=== PATIENT | male | born 1975 | race Caucasian/White ===

== ENCOUNTER 2022-01-04 12:45 | Emergency (ER) | payer MEDICAID, SELFPAY ==
[2022-01-04 13:04] VITALS: BP 119/76; PULSE 72; RESP 18; TEMP 36.9; O2SAT 95; BMI 28.0
[2022-01-04 13:15] LABS: Apearance,Urine Clear (Clear); Color,Urine Yellow (Yellow)
[2022-01-04 13:16] LABS: Blood, Urine Negative (Negative); Glucose,Urine (UA) Negative (Negative); Ketones,Urine Negative (Negative); Protein,Urine Negative (Negative); Specific Gravity, Urine >= 1.030 (1.005-1.030)
[2022-01-04 13:17] LABS: Bilirubin,Urine Negative (Negative); UTC Leukocyte Esterase,Urine Negative (Negative); UTC Nitrate,Urine Negative (Negative); Urobilinogen,Urine 0.2 EU/dl (0.2)
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
[2022-01-04 14:23] VITALS: BP 119/76; PULSE 72; RESP 18; TEMP 36.9
== END 2022-01-04 14:24 | disposition home or self-care (01) ==
PROVIDERS: Emergency Provider Nurse Practitioner
DX: N30.00 Acute cystitis without hematuria (principal)
CPT/HCPCS: 81003; 87086; 99212; G0463

== ENCOUNTER 2022-11-26 17:39 | Emergency (ER) | payer MEDICAID, SELFPAY ==
[2022-11-26 17:40] VITALS: BP 151/91; PULSE 64; RESP 20; TEMP 37.1; O2SAT 99; BMI 27.3
--- NOTE | 2022-11-26 17:48 | CT_ITS ---
PROCEDURE INFORMATION: Exam: CT Abdomen And Pelvis Without Contrast Exam date and time: 11/26/2022 6:05 PM Age: 47 years old Clinical indication: Abdominal pain; Flank; Right; Additional info: Kidney stone TECHNIQUE: Imaging protocol: Computed tomography of the abdomen and pelvis without contrast. Radiation optimization: All CT scans at this facility use at least one of these dose optimization techniques: automated exposure control; mA and/or kV adjustment per patient size (includes targeted exams where dose is matched to clinical indication); or iterative reconstruction. REPORTING DATA: Count of CT and Cardiac NM exams in prior 12 months: This patient has received 0 known CTs and 0 known cardiac nuclear medicine studies in the 12 months prior to the current study. COMPARISON: No relevant prior studies available. FINDINGS: Liver: Unremarkable. Gallbladder and bile ducts: Gallbladder is not visualized. Pancreas: Unremarkable. Spleen: Unremarkable. Adrenal glands: Unremarkable. Kidneys and ureters: Three stones in the distal right ureter near the ureterovesical junction measuring 2-5 mm and associated with moderate right hydroureteronephrosis and renal edema. Few additional punctate (2-3 mm) non-obstructing stones in the bilateral kidneys. No left hydronephrosis. Stomach and bowel: Unremarkable. Appendix: No evidence of appendicitis. Intraperitoneal space: No free fluid. No pneumoperitoneum. Vasculature: Unremarkable. Lymph nodes: Unremarkable. Urinary bladder: Bladder is decompressed, limiting evaluation. Reproductive: Unremarkable. Bones/joints: No acute osseous abnormality. Soft tissues: Unremarkable. IMPRESSION: 1. Three stones in the distal right ureter near the ureterovesical junction measuring 2-5 mm and associated with moderate right hydroureteronephrosis and renal edema. 2. Few additional punctate (2-3 mm) non-obstructing stones in the bilateral kidneys.
[2022-11-26 17:57] LABS: Basophils # 0.1 K/mm3 (0-0.2); Basophils % 0.9 % (0.1-2.0); Eosinophils # 0.2 K/mm3 (0.0-0.4); Eosinophils % 1.5 % (0.1-12.0); Hematocrit 47.5 % (42.0-52.0); Hemoglobin 15.1 g/dL (14.1-18.0); Lymphocytes # 2.4 K/mm3 (0.7-4.5); Lymphocytes % 20.3 % (10-50); Mean Corpuscular HGB Conc 31.8 g/dL (31.8-35.4); Mean Corpuscular Hemoglobin 28.3 pg (27.0-31.2); Mean Corpuscular Volume 88.7 fl (80-94); Mean Platelet Volume 7.4 fl (7.4-10.4); Monocytes # 0.5 K/mm3 (0.1-1.0); Monocytes % 4.2 % (1.7-9.3); Neutrophils # 8.7 K/mm3 (1.8-7.8); Neutrophils % 73.2 % (37.0-80.0); Platelet Count 274 K/mm3 (142-424); Red Blood Count 5.35 M/mm3 (4.60-6.20); Red Cell Distribution Width 13.9 % (11.5-17.5); White Blood Count 11.9 K/mm3 (4.8-10.8)
[2022-11-26 18:18] LABS: Chloride 100 mmol/L (98-107); Potassium 4.3 mmoL/L (3.5-5.1); Sodium 138 mmol/L (136-145)
[2022-11-26 18:21] LABS: Alanine Aminotransferase 26 U/L (12-78); Albumin Level 4.7 g/dl (3.5-5.0); Albumin/Globulin Ratio 1.9 (1.1-1.8); Alkaline Phosphatase 70 U/L (38-126); Anion Gap 10.3 mEq/L (5-15); Aspartate Amino Transferase 53 U/L (17-59); Bilirubin,Total 0.7 mg/dl (0.2-1.3); Blood Urea Nitrogen 17 mg/dl (9-20); Carbon Dioxide 32 mmol/L (22.0-30.0); Creatinine Clearance Estimated 83 mL/min (50-200); Estimated Glomerular Filt Rate 59 ml/min (>60); GFR (African American) 72 ML/MIN (>60); Globulin 2.5 g/dL (1.3-3.2); Glucose 112 mg/dl (74-100); Total Protein,Serum 7.2 g/dl (6.3-8.2)
--- NOTE | 2022-11-26 19:08 | HMH.EDGENADL ---
Discharge Plan Disposition Patient Disposition: Home, Self-Care Condition: Fair Prescriptions Prescriptions: New oxycodone-acetaminophen [Percocet] 10-325 mg tablet 1 tab PO Q6H PRN (Reason: pain) Qty: 20 0RF ondansetron 4 mg tablet,disintegrating 4 mg PO Q8H PRN (Reason: nausea and vomiting) Qty: 10 0RF tamsulosin [Flomax] 0.4 mg capsule 0.4 mg PO HS Qty: 10 0RF ketorolac 10 mg tablet 10 mg PO Q6H PRN (Reason: pain) 3 Days Qty: 10 0RF No Action phenazopyridine 200 MG tablet 200 pow PO TID Qty: 6 0RF cefdinir 300 MG capsule 300 mg PO BID 7 Days Qty: 14 0RF Referrals Follow up/Referrals: Provider,Isha, [Primary Care Provider] - See instructions Mika Menendez MD [Referring] - See instructions Activity Restrictions/Add. Instructions Additional Instructions/Restrictions: Flomax as prescribed. Toradol and Percocet as needed for pain. Zofran as needed for nausea. Additional instructions for KIDNEY STONE (URETERAL CALCULUS): See urologist, Dr. Menendez, as soon as possible for further evaluation. Drink plenty of fluids. Strain your urine and save any stones you catch. Return immediately if you develop a fever or have uncontrollable vomiting or uncontrollable pain. Additional instructions for CONTROLLED SUBSTANCES: You have been prescribed a medication that is a controlled substance. Controlled substances include pain medications known as opiates and sedative nerve medications known as benzodiazepines. Tramadol, fioricet, and gabapentin are also controlled substances. Some common opiates include: Codeine (such as Tylenol #3) Hydrocodone (Vicodin, Lortab, Lorcet, [place]) Oxycodone (Percocet, Percodan, Oxycodone, Oxy IR) Some common benzodiazepines include: Diazepam (Valium) Lorazepam (Ativan) Alprazolam (Xanax) Clonazepam (Klonopin) Oxazepam (Serax) All of these controlled substances are highly addictive and frequently abused. Misuse can and frequently does lead to addiction as well as overdose and . Medication should be stored in a locked cabinet or other secure storage unit. Do not store the medication in a motor vehicle. Short term supplies, 3 days or less, are prescribed because of the highly addictive nature of the medication. Any of the controlled substance medication NOT taken should be disposed of properly and NOT SAVED. The recommended method of disposing of unused medications is: Place the medicines in a sealable plastic bag. If the medicine is a solid, crush it or add water to dissolve it. Add something undesirable (cat litter, coffee grounds, etc.) Dispose of sealed bag in household trash Do not flush or pour unused medicines down a sink or drain. Controlled substances should not be shared, given away or sold. Because of the addictive nature and frequent abuse, these medications are sometimes stolen. These medications should be kept in a safe place where they cannot be stolen. Do not keep them in your car or purse. Lost or stolen prescriptions for controlled substances WILL NOT BE REFILLED in this emergency department, regardless of whether a police report was filed. Clinical Impressions Clinical Impression: Calculi, ureter, Nephrolithiasis Instructions Patient Instructions: DI for Kidney Stones Discharge ED Provider: Phillip Spencer General Adult HPI General Chief complaint: Abdominal Pain Stated complaint: Kidney stones Time Seen by Provider: 11/26/22 19:04 Mode of Arrival: Ambulatory Limitations: No Limitations Description of Symptoms (Recalled from ER Triage Doc. by RN): PT REPORTS KIDNEY STONE RIGHT GROIN PAIN THAT BEGAN ABOUT 1400, BLOOD IN URINE. HX OF MULTIPLE KIDNEY STONES History of Present Illness HPI narrative: Patient complains of sudden onset of pain in his right lower quadrant, right flank, and right testicle that began at 2 PM. He has seen hematuria. He has nausea but no vomiting. He feels hot, but no docu
--- NOTE | 2022-11-26 19:14 | PC.NURSE ---
report given to oncoming mitzy- Eileen Muller and Amy.
[2022-11-26 19:39] LABS: Microscopic, Urine URINE MICROSCOPIC (MICROSCOPIC)
[2022-11-26 20:26] LABS: Appearance,Urine CLEAR (Clear); Blood, Urine 3+ (Negative); Color,Urine YELLOW (Yellow); Glucose,Urine (UA) Negative (Negative); Ketones,Urine Negative (Negative); Leukocyte Esterase,Urine Negative (Negative); Nitrate,Urine Negative (Negative); PH,Urine 5.5 (5.0-8.5); Protein,Urine TRACE (Negative); Specific Gravity, Urine >= 1.030 (1.005-1.030); Urobilinogen,Urine 0.2 EU/dl (0.2)
[2022-11-26 20:35] LABS: Bilirubin,Urine 1+ (Negative)
[2022-11-26 20:37] VITALS: BP 147/87; PULSE 61; RESP 20; TEMP 37.1; O2SAT 99
[2022-11-26 21:30] LABS: RBC,Urine 20-50 #/hpf (0-3); Squamous Epithelial Cell,Urine Occasional #/hpf (0-5); WBC,Urine Occasional #/hpf (0-3); Yeast,Urine 1+ /lpf
== END 2022-11-26 20:38 | disposition home or self-care (01) ==
PROVIDERS: Emergency Provider Emergency Medicine
DX: N13.2 Hydronephrosis with renal and ureteral calculous obstruction (principal); N10 Acute pyelonephritis; R31.9 Hematuria, unspecified; R10.31 Right lower quadrant pain
CPT/HCPCS: 74176; 80053; 81001; 85025; 96374; 96375; 96376; 99285; J2405